=== PATIENT | female | born 1990 | race American Indian/Alaskan Native ===

== ENCOUNTER 2022-06-23 01:57 | Emergency (ER) | payer BC, MEDICAID ==
[2022-06-23] MEDS ORDERED: diphenhydrAMINE 50 MG Cap PO ONE (01:58)
[2022-06-23 02:23] VITALS: BP 119/84; PULSE 99
[2022-06-23] MEDS ORDERED: Ketorolac 10 MG Tab PO ONE (02:46)
[2022-06-23] MEDS ORDERED: Ondansetron 4 MG Tab.DIS PO ONE (02:46)
[2022-06-23] MEDS ORDERED: Ketorolac 30 MG/ML SDV IVPUSH ONE (02:48)
[2022-06-23] MEDS ORDERED: Ondansetron 4 MG/2 ML SDV IVPUSH ONE (02:48)
[2022-06-23] MEDS ORDERED: Sodium Chloride 0.9% 1,000 ML IV ONE (02:48)
[2022-06-23 03:06] LABS: CORONAVIRUS COVID-19 NAA NEGATIVE (NEGATIVE); RESPIRATORY SYNCYTIAL VIR NAA NEGATIVE (NEGATIVE)
[2022-06-23 03:24] LABS: ANION GAP 11.6 mEq/L (7-13); CHLORIDE,CL 101 mmol/L (98-107); SODIUM,NA 136 mmol/L (136-145)
[2022-06-23 03:25] LABS: ESTIMATED GFR 82 mL/min (>=60)
[2022-06-23] MEDS ORDERED: Oseltamivir 75 MG Cap PO ONE (03:52)
[2022-06-23] MEDS ORDERED: diphenhydrAMINE 50 MG Cap ONE (04:09)
== END 2022-06-23 04:20 | disposition home or self-care (01) ==
LOC: DL.ED 01:57
DX: J10.1 Influenza due to other identified influenza virus with other respiratory manifestations (principal); Z20.822 Contact with and (suspected) exposure to COVID-19
CPT/HCPCS: 0241U; 36415; 80053; 84703; 85025; 87081; 87430; 96361; 96374; 96375; 99284; A9270; J1885; J2405; J7030; Q0163